=== PATIENT | male | born 1970 | race Two or more races ===

== ENCOUNTER 2017-05-16 17:01 | Emergency (ER) | payer OTHER ==
[2017-05-16 17:08] VITALS: RESP 18
--- NOTE | 2017-05-16 17:14 | CPEKG ---
Heart Rate: 77 RR Interval: 779 P-R Interval: 192 QRSD Interval: 94 QT Interval: 380 QTC Interval: 431 P [place]: 63 QRS [place]: 2 T Wave [place]: 46 EKG Severity - NORMAL ECG - EKG Impression: SINUS RHYTHM Electronically Signed By: Lesli Felipe 16-May-2017 21:02:26
[2017-05-16 17:36] LABS: PLATELET COUNT 214 10^3/uL (150-400)
[2017-05-16] MEDS ORDERED: predniSONE 20 MG TAB PO ONE (17:53)
[2017-05-16] MEDS ORDERED: valACYclovir 500 MG TAB PO ONE (17:54)
--- NOTE | 2017-05-16 18:04 | EDPHY ---
H & P Time Seen by Provider: 05/16/17 17:16 HPI/ROS: HPI Neck pain, facial weakness. 46-year-old male by private vehicle. 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 He had sudden onset pain left lateral lower neck followed by left -sided facial paralysis. Onset at 7:30 a.m.. No history of trauma. ROS: Constitutional: No fever, no chills. No weakness. Eyes: No discharge. No changes in vision. ENT: No sore throat. No nasal congestion or rhinorrhea. Respiratory: No cough. No shortness of breath. Cardiac: No chest pain, no palpitations. Gastrointestinal: No abdominal pain, no vomiting, no diarrhea. Genitourinary: No hematuria. No dysuria or increased frequency with urination. Musculoskeletal: No back pain. As above. No myalgias or arthralgias. Skin: No rashes. Neurological: No headache. As above. Denies any loss of sensation or weakness in his extremities.. Past medical history: No past medical history. Social history: Here by himself. Nonsmoker. Bhutanese-speaking only. Denies alcohol and drugs. Physical Exam: General Appearance: Alert, no distress. This patient is responding to questions appropriately and in full sentences. This patient appears well- hydrated and well-nourished. Eyes: Pupils equal and round at 3-2 mm bilaterally, no pallor or injection. No lid edema, erythema or injection. ENT, Mouth: Mucous membranes are moist. The pharyngeal tissues are unremarkable. No edema or swelling. No asymmetry suggestive of abscess. No erythema or exudates. Respiratory: There are no retractions, lungs are clear to auscultation with good air movement bilaterally. Cardiovascular: Regular rate and rhythm. No murmur. Gastrointestinal: Abdomen is soft and nontender, no masses, bowel sounds normal. No focal tenderness at McBurney's point. No Lma sign. Neurological: Motor sensory function is grossly intact. The patient has facial nerve paralysis upper and lower left side, facial sensory is intact bilaterally and symmetric. Cerebellar function [id number] and [id number] normal. Gait is normal. Skin: Warm and dry, no rashes. Musculoskeletal: Neck is supple with vague tenderness on palpation left posterior lateral upper neck and suboccipital region. No rash or soft tissue changes noted r. Extremities are symmetrical. All joints range without pain or impingement. Psychiatric: No agitation. No depression. Database: EKG: EKG time is 5:12 p.m.; EKG shows a narrow complex normal sinus rhythm with a ventricular rate of 77. The VA, QRS, QT intervals are within normal limits. There are no ST-T wave changes indicative of ischemic or injury pattern. No evidence of right heart strain. Interpreted by me. Imaging: CT angiogram of head and neck: Negative. Results were discussed with staff radiologist Dr. Mauri Enciso. Procedures: Emergency department course: Vital signs reviewed and are normal. Patient's presentation is consistent with Benoit's palsy. However his left-sided posterior lateral neck pain is concerning given the coincidence of onset of symptoms with left-sided facial paralysis. CT angiogram of the head neck will be obtained rule out dissection or other vascular pathology. Patient will be treated initially for Benoit's palsy with Valtrex and prednisone. 7:10 p.m., patient re-evaluated. No change in neurologic status. Presentation consistent with Benoit's palsy. Waiting on CT imaging. 8:20 p.m., patient re-evaluated. Resting comfortably. Results of CT scan discussed. Patient will be discharged home with treatment and follow-up for Benoit's palsy. Return to emergency department precautions reviewed with him. All of his questions were answered. This was all done with a public relations representative. He was discharged in good condition. Differential Diagnosis: The differential diagnosis on this patient includes but is not limited to Benoit' s palsy. CVA, vertebral artery dissection, carotid artery dissection unlikely. This represents a partial list of diagnoses considered. These considerations are based on history, physical exam, past history, reassessment and diagnostic testing. Smoking Status: Never smoked Constitutional: Initial Vital Signs Temperature (C) 36.7 C 05/16/17 17:05 Heart Rate 88 05/16/17 17:05 Respiratory Rate 18 05/16/17 17:05 Blood Pressure 141/80 H 05/16/17 17:05 O2 Sat (%) 97 05/16/17 17:05 O2 Delivery Mode Room Air Allergies/Adverse Reactions: No Known Allergies Allergy (Unverified 05/16/17 17:05) Home Medications: Medication Instructions Recorded Valacyclovir HCl [Valtrex] 1,000 mg PO TID #21 tab 05/16/17 predniSONE [prednisone 20mg (RX)] 60 mg PO DAILY #9 tab 05/16/17 Medical Decision Making - Data Points Laboratory Results: Laboratory Results 05/16/17 17:15 05/16/17 17:15 05/16/17 05/16/17 05/16/17 17:19 17:15 17:15 WBC 7.29 10^3/uL 10^3/uL (3.80-9.50) RBC 5.14 10^6/uL 10^6/uL (4.40-6.38) Hgb 15.2 g/dL g/dL (13.7-17.5) POC Hgb 14.6 gm/dL gm/dL (13.7-17.5) Hct 45.3 % % (40.0-51.0) POC Hct 43 % % (40-51) MCV 88.1 fL fL (81.5-99.8) MCH 29.6 pg pg (27.9-34.1) MCHC 33.6 g/dL g/dL (32.4-36.7) RDW 13.2 % % (11.5-15.2) Plt Count 214 10^3/uL 10^3/uL (150-400) MPV 9.6 fL fL (8.7-11.7) Neut % (Auto) 52.2 % % (39.3-74.2) Lymph % (Auto) 35.3 % % (15.0-45.0) [place] % (Auto) 9.9 % % (4.5-13.0) Eos % (Auto) 1.8 % % (0.6-7.6) Baso % (Auto) 0.5 % % (0.3-1.7) Nucleat RBC Rel Count 0.0 % % (0.0-0.2) Absolute Neuts (auto) 3.81 10^3/uL 10^3/uL (1.70-6.50) Absolute Lymphs (auto) 2.57 10^3/uL 10^3/uL (1.00-3.00) Absolute Monos (auto) 0.72 10^3/uL 10^3/uL (0.30-0.80) Absolute Eos (auto) 0.13 10^3/uL 10^3/uL (0.03-0.40) Absolute Basos (auto) 0.04 10^3/uL 10^3/uL (0.02-0.10) Absolute Nucleated RBC 0.00 10^3/uL 10^3/uL (0-0.01) Immature Gran % 0.3 % % (0.0-1.1) Immature Gran # 0.02 10^3/uL 10^3/uL (0.00-0.10) POC Sodium 143 mEq/L mEq/L (135-145) Sodium 142 mEq/L mEq/L (135-145) POC Potassium 3.7 mEq/L mEq/L (3.3-5.0) Potassium 4.2 mEq/L mEq/L (3.5-5.2) POC Chloride 68 mEq/L L mEq/L (97-110) Chloride 104 mEq/L mEq/L (97-110) Carbon Dioxide 26 mEq/l mEq/l (22-31) Anion Gap 12 mEq/L mEq/L (8-16) POC BUN 25 mg/dL H mg/dL (7-23) BUN 19 mg/dL mg/dL (7-23) Creatinine 1.0 mg/dL mg/dL (0.7-1.3) POC Creatinine 1.0 mg/dL mg/dL (0.7-1.3) Estimated GFR > 60 Glucose 90 mg/dL mg/dL (70-100) POC Glucose 86 mg/dL mg/dL (70-100) Calcium 9.7 mg/dL mg/dL (8.5-10.4) Total Bilirubin 0.4 mg/dL mg/dL (0.1-1.4) AST 41 IU/L IU/L (17-59) ALT 46 IU/L IU/L (21-72) Alkaline Phosphatase 110 IU/L IU/L (38-126) Total Protein 7.7 g/dL g/dL (6.3-8.2) Albumin 4.7 g/dL g/dL (3.5-5.0) Medications Given: Discontinued Medications Prednisone (Prednisone) 60 mg PO EDNOW ONE Stop: 05/16/17 17:54 Last Admin: 05/16/17 18:01 Dose: 60 mg Valacyclovir HCl (Valtrex) 1,000 mg PO EDNOW ONE Stop: 05/16/17 17:55 Last Admin: 05/16/17 18:01 Dose: 1,000 mg Point of Care Test Results: 05/16/17 17:19 POC Sodium 143 POC Potassium 3.7 POC Chloride 68 L POC BUN 25 H POC Creatinine 1.0 POC Glucose 86 Departure - Departure Disposition: Home, Routine, Self-Care Clinical Impression: Benoit's palsy Condition: Good Instructions: Benoit Palsy (ED) Additional Instructions: Read and follow provided instructions. Follow-up with your primary care physician at [facility] on Friday for re- evaluation Take medication as prescribed through entire course of treatment. You need to apply artificial tears as demonstrated by the nursing staff every hour while awake. This needs to be done to prevent your left eye from drying out. Return to the emergency department for worsening symptoms, changes in vision or other serious concerns or other serious concerns. - Brianna y siga las instrucciones proveidas. - Maksim komal mare de seguimiento con hairston doctor en [place] . - Alafaya y teminese todo el tratamiento de medicamentos mari se le mcmillan indicado. - Necesita aplicarse lagrinas artificiales a mari se le mcmillan demostrado por la enfernera cada hora mientras esta despierto. - Regrese a la patricia de emergencia si los sintomas empeoran, camb[place] hairston vista o si tiene preocupaciones serias u otras preocupaciones. Referrals: [facility],. [Clinic] - As per Instructions Prescriptions: predniSONE [prednisone 20mg (RX)] 60 mg PO DAILY #9 tab Valacyclovir HCl [Valtrex] 1,000 mg PO TID #21 tab Print Language: Bhutanese
[2017-05-16] MEDS ORDERED: IOPAMIDOL (ISOVUE 370) 100 ML BTL IV ONE (18:30)
[2017-05-16 19:11] VITALS: PULSE 78
[2017-05-16 20:34] VITALS: BP 131/89; TEMP 98.2; O2SAT 96
== END 2017-05-16 20:34 | disposition home or self-care (01) ==
DX: G51.0 Bell's palsy (principal)
CPT/HCPCS: 82947-QW; J7512; Q9967